=== PATIENT | female | born 1985 | race African-American/Black ===

== ENCOUNTER 2021-03-04 13:24 | Inpatient (IN) | payer MEDICAID ==
[~2021-03-04] VITALS: Ht 177.8 cm; Wt 81.0 kg
--- NOTE | 2021-03-04 15:57 | NUR ---
PT PLEASANT, AOX4, R ARM STRONGER THAN LEFT. LEGS WEAK AND REPORTS NUMBNESS BUT CAN FEEL WHEN PALPATING LEGS. REPORTS LEGS FEELING "HEAVY". ASSESSMENT PERFORMED, REPORTS JORY JAMIL TO SEE PT.
[2021-03-04 16:12] VITALS: BP 108/72; PULSE 95; TEMP 99.2
[2021-03-04] MEDS ORDERED: ONE-A-DAY ESSE1 EACH PO (16:30)
--- NOTE | 2021-03-04 17:55 | NUR ---
PT PLEASANT, AOX4, REPORTS LEG HEAVINESS AND NUMBNESS EXTENDING TO ABD. PT ORDERED DINNER, IV STARTED, B12 GIVEN, PT ALERT AND ORIENTED, DOES NOT GET UP WITHOUT ASSISTANCE.
--- NOTE | 2021-03-04 20:00 | NUR ---
Initial shift assessment done- denies pain, talking on the phone with family/friends. VSS. States lower extremities feel heavy, some numbness and tingling- states up to about rib level. Dr. Collins was just here to assess patient , ordered LP and MRI for tomorrow- patient aware. Will call for assist to bathroom.
[2021-03-04 20:26] VITALS: BP 102/71; PULSE 93; TEMP 98.4
[2021-03-05] VITALS (7 sets, daily range): BP systolic 103–117; BP diastolic 68–78; PULSE 76–98; TEMP 97.7–99.4
--- NOTE | 2021-03-05 06:00 | NUR ---
Did sleep some during the night-- VSS, understands having a LP and MRI today. Neuros unchanged- weak from waist/ribs down, with some tingling and numbness
[2021-03-05 06:30] LABS: HEMOGLOBIN 11.7 g/dl (12.5-16.0); MEAN CELL VOLUME 83 fl (80.0-100.0); MEAN CORPUSCULAR HEMOGLOBIN 26 pg (27.0-31.0); MEAN CORPUSCULAR HGB CONC 32 g/dl (33.0-37.0); MEAN PLATELET VOLUME 10.7 fl (7.4-10.4); PLATELET COUNT 235 K/mm3 (130-400); RED BLOOD COUNT 4.44 M/mm3 (4.10-5.30); REDCELL DISTRIBUTION WIDTH-CV 14.6 % (11.5-14.5)
[2021-03-05 06:40] LABS: HEMATOCRIT 36.9 % (37.0-47.0)
[2021-03-05 06:57] LABS: CALCIUM 9.4 mg/dL (8.4-10.2); CREATININE, serum 0.79 (0.52-1.25)
--- NOTE | 2021-03-05 08:05 | NUR ---
PT PLEASANT, AOX4, BLE NUMBNESS, STRENGTH INTACT, ASSESSMENT PERFOMRED, MEDICATIONS GIVEN, CONSENT OBTAINED FOR LP, NO OTHER NEEDS.
--- NOTE | 2021-03-05 10:09 | NUR ---
Central Office Worker attended clinical rounds with the team. PT/OT ordered. MRI ordered. Following rounds SW met with the patient to complete intake. The patient lives with her two daughters ages 9 and 12, and her mother, Jack Heath # . The patient denies DME use and is independent with ADLs. The patient's PCP is Aram Rowe PA-C at [facility] and uses [facility] in [place] for medications. The patient does not have advanced directives. The patient is legally from her but not . The patient's parents live locally. The patient plans to return home at discharge and the patient's father Mike Heath will provide transportation. *Discharge disposition at this time: Home with her mother and daughters
--- NOTE | 2021-03-05 10:51 | NUR ---
Initial visit; Patient thanked Gr[employer] 9 [employer] Tutor for looking in on her and offering encouragement and God's blessings.
[2021-03-05 15:58] LABS: HIV 1 and 2 ANTIBODY SCRN-SO Negative (Negative)
[2021-03-05 16:31] LABS: GLUCOSE,CSF 49 mg/dL (40-70); TOTAL PROTEIN,CSF 28 mg/dL (15-45)
[2021-03-05 16:45] LABS: CSF APPEARANCE CLEAR; CSF COLOR COLORLESS; CSF RBC 0 /mm3 (0-0)
[2021-03-05 17:01] LABS: CSF POLYMORPHONUCLEAR 0 % (0-6)
[2021-03-05 17:02] LABS: CSF MONONUCLEAR 15 % (70-100)
--- NOTE | 2021-03-05 18:00 | NUR ---
pt pleasant, aox4, weak le with numbness, solumedrol infusing, denies pain, all mri's/lp done today, no other needs.
--- NOTE | 2021-03-05 20:00 | NUR ---
Report received, assumed care for overnight associate. Assessment complete. VS stable. A&Ox3. Assisted up to bathroom-stand by assist-tolerated well. States she feels much more steady and has more feeling to lower extremities after receiving the steroids. States lower extremities are still "tingling" but not nearly as bad. Denies pain/nausea/shortness of breath. Voiding without difficulty. Tolerating PO. Denies questions/concerns. Call light in reach. Will monitor.
[2021-03-05 23:06] LABS: FOLATE (FOLIC ACID) >20.0 ng/mL (2.0-20.0)
[2021-03-06 01:31] LABS: LYME DISEASE ANTIBODIES 0.803 (Negative)
[2021-03-06 04:28] VITALS: BP 106/69; PULSE 66; TEMP 98
--- NOTE | 2021-03-06 05:35 | NUR ---
Pt states walking is much easier. States she feels much more steady and has more feeling to her lower extremity. Denies pain/nausea/shortness of breath. VS remained stable. Denies current needs. Call light in reach. Will monitor.
[2021-03-06 07:35] VITALS: BP 119/74; PULSE 73; TEMP 98.7
--- NOTE | 2021-03-06 07:47 | NUR ---
Patient lying awake in bed at this time. Patient C/O headache, Pilar to give tylenol before leaving. Patient denies any further discomfort or needs at this time. Will continue to monitor. Call light in reach. Fall precautions in place.
--- NOTE | 2021-03-06 09:39 | NUR ---
Scheduled meds given. Assessments performed. Patient C/O headache rated a 4/10. Tylenol given earlier in shift. Patient denies any further pain, discomfort, or needs at this time. Will continue to monitor. Call light within reach. Fall precautions in place.
[2021-03-06 11:57] VITALS: BP 105/66; PULSE 87; TEMP 97.7
[2021-03-06 17:19] VITALS: BP 96/59; PULSE 65; TEMP 98.6
--- NOTE | 2021-03-06 17:59 | NUR ---
Patient has had an good day. Worked with PT, walked in hallway. Patient C/O headache this am that was not relieved by PRN Tylenol. Benydryl and metoclorpramide given as ordered. Patient states that her headache is gone and that she was able to rest. Patient denies any further pain, discomfort, or needs at this time. Will continue to monitor. Call light within reach. Fall precautions in place.
--- NOTE | 2021-03-06 19:20 | NUR ---
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 Assessment complete. VS have been stable. Tolerating PO. Sitting up in bed visiting with father. Denies pain/nausea/shortness of breath. Able to move extremities better than last shift. States she ambulated in the hallways with PT today and tolerated it well-did state she felt tired after and slept well. Encouraged to call if headache returns. Verbalizes understanding/denies current needs. Call light in reach. Will monitor.
[2021-03-06 20:00] VITALS: BP 113/74; PULSE 78; TEMP 98.4
[2021-03-06 23:14] VITALS: BP 109/72; PULSE 70; TEMP 97.9
[2021-03-07 03:11] VITALS: BP 105/64; PULSE 55; TEMP 98.1
--- NOTE | 2021-03-07 04:25 | NUR ---
Slept well this shift. Denies headache/pain. States lower extremity numbness/tingling is much better. States ambulation is getting much better as well-stand by with walker. VS remained stable. Left forearm INT flushes without difficulty. Neuro checks WNL accept lower extremity control. Denies current needs. Call light in reach. Will monitor.
[2021-03-07 06:29] LABS: HEMOGLOBIN 11.5 g/dl (12.5-16.0); MEAN CELL VOLUME 81 fl (80.0-100.0); MEAN CORPUSCULAR HEMOGLOBIN 26 pg (27.0-31.0); MEAN CORPUSCULAR HGB CONC 32 g/dl (33.0-37.0); MEAN PLATELET VOLUME 10.6 fl (7.4-10.4); PLATELET COUNT 294 K/mm3 (130-400); RED BLOOD COUNT 4.39 M/mm3 (4.10-5.30); REDCELL DISTRIBUTION WIDTH-CV 14.6 % (11.5-14.5)
[2021-03-07 06:35] LABS: HEMATOCRIT 35.7 % (37.0-47.0)
[2021-03-07 06:37] LABS: CALCIUM 9.3 mg/dL (8.4-10.2); CREATININE, serum 0.83 (0.52-1.25); POTASSIUM 4.1 mmol/L (3.4-5.0)
--- NOTE | 2021-03-07 07:08 | NUR ---
Patient lying awake in bed watching videos on her phone. Patient states that she is feeling alot better today. Denies any pain, discomfort, or futher needs at this time. Will continue to monitor. Call light in reach. Fall precautions in place.
[2021-03-07 07:15] VITALS: BP 109/75; PULSE 71; TEMP 98
[2021-03-07 07:16] LABS: BAND 1 % (0-10); HYPOCHROMIA 1+; LYMPHOCYTE 5 % (20.0-51.0); NEUTROPHILS 94 % (42.0-75.2); PLATELET ESTIMATE NORMAL (NORMAL)
[2021-03-07 07:17] LABS: OVALOCYTES 1+; SCHISTOCYTES 1+
--- NOTE | 2021-03-07 08:13 | NUR ---
Scheduled meds given, assessments performed. Strength in left leg normal, right leg is still weak. Patient denies any pain, discomfort, or needs at this time. Will continue to monitor. Call light within reach. Fall precautions in place.
[2021-03-07 11:44] VITALS: BP 113/72; PULSE 58; TEMP 98.9
--- NOTE | 2021-03-07 12:29 | NUR ---
Patient resting in bed talking on the phone. Flexril given for neck pain, patient states that this has helped rid her of the pain. Patient denies any further discomfort or needs at this time. Will continue to monitor. Call light within reach. Fall precautions in place.
[2021-03-07 16:18] VITALS: BP 101/60; PULSE 72; TEMP 99
--- NOTE | 2021-03-07 17:47 | NUR ---
Patient had a good day. She did experience a headache earlier in the day, but it was relieved by flexeril and a warm towel. Patient has not experienced any further pain, discomfort, and denies any further needs. Solumedrol running as ordered. Call light within reach. Fall precautions in place. Will continue to monitor.
[2021-03-07 19:02] VITALS: BP 101/65; PULSE 69; TEMP 98.7
--- NOTE | 2021-03-07 20:30 | NUR ---
SL TO LEFT FOREARM FLUSHED, SOLUMEDROL COMPLETE. IS ALERT AND ORIENTED X4. INDEPENDENT IN ROOM. RT LEG WITH WEAKNESS, LEFT LEG FULL STRENGTH. DENIES NEEDS AT THIS TIME. DENIES HEADACHE.
[2021-03-07 23:43] VITALS: BP 107/71; PULSE 55; TEMP 98.5
--- NOTE | 2021-03-08 04:00 | NUR ---
PT HAS RESTED WELL. OFFERS NO COMPLAINTS.
[2021-03-08 04:08] VITALS: BP 115/68; PULSE 57; TEMP 98.4
--- NOTE | 2021-03-08 07:00 | NUR ---
REPORTS HEADACHE 4/10, FLEXERIL GIVEN.
--- NOTE | 2021-03-08 08:30 | NUR ---
PT PLEASANT, AOX4, REPORTED HEADACHE 4/10 AT SHIFT CHANGE FLEXERIL GIVEN AT BEDSIDE SHIFT REPORT, PT NOW REPORTS HEADACHE 2/10. PT DIDN'T EAT BREAKFAST BECAUSE "IT TASTED WEIRD". PT R LEG SIGNIFICANTLY WEAKER THAN RIGHT LEG, PT REPORTS BLE TINGLING AT THIS TIME, UPPER EXTREMITIES STRONG EQUALLY. MEDICATIONS GIVEN WITH EDUCATION ON PURPOSE, PT ASSESSMENT PERFORMED, VITALS REVIEWED, NO OTHER NEEDS AT THIS TIME.
[2021-03-08 08:37] VITALS: BP 117/71; PULSE 73; TEMP 97.6
[2021-03-08 11:39] VITALS: BP 110/68; PULSE 56; TEMP 98.7
--- NOTE | 2021-03-08 13:18 | NUR ---
Pt c/o neck pain 03/01. PRN tylenol and hot pack given. Pt is now resting in bed. Denies needs. Call light within reach.
--- NOTE | 2021-03-08 13:59 | NUR ---
Sales Driver met with the patient follow up regarding discharge plan. SW discussed PTs recommendation of the possiblity of needing IPR (post acute rehab). The patient would like to return home at discharge but was agreeable to sending referral to [facility]. Referral sent. *Discharge disposition: Plan is home but was agreeable to IPR referral for a back up. Awaiting screen.
[2021-03-08 14:48] LABS: HSV 2 DNA PCR QUAL Not Detected (())
[2021-03-08 17:00] VITALS: BP 112/70; PULSE 60; TEMP 98.5
--- NOTE | 2021-03-08 17:34 | NUR ---
PT PLEASANT, AOX4, UNEVENFTUL SHIFT, HEADACHE RELIEVED WITH TYLENOL AND HEAT PACK, NO OTHER NEEDS AT THIS TIME. SOLUMEDROL GIVEN.
[2021-03-08 19:52] VITALS: BP 112/73; PULSE 58; TEMP 98
--- NOTE | 2021-03-08 20:00 | NUR ---
Report received, assumed care for multi disciplined language analyst. Assessment complete. VS stable. A&Ox3. Denies pain/nausea/shortness of breath. Denies headache. Bilat lower extremitites stronger. Can lift and hold left lower extremity-right slightly less strong but can also lift and hold. Plan of care discussed for this shift-to include HS meds/pain meds/calling for questions/concerns. Call light in reach. Will monitor.
[2021-03-08 23:59] VITALS: BP 110/67; PULSE 52; TEMP 98.3
[2021-03-09 04:30] VITALS: BP 119/75; PULSE 49; TEMP 98.4
[2021-03-09 07:51] LABS: HEMOGLOBIN 11.4 g/dl (12.5-16.0); MEAN CELL VOLUME 84 fl (80.0-100.0); MEAN CORPUSCULAR HEMOGLOBIN 27 pg (27.0-31.0); MEAN CORPUSCULAR HGB CONC 32 g/dl (33.0-37.0); PLATELET COUNT 283 K/mm3 (130-400); REDCELL DISTRIBUTION WIDTH-CV 14.8 % (11.5-14.5)
[2021-03-09 07:58] LABS: HEMATOCRIT 35.9 % (37.0-47.0)
--- NOTE | 2021-03-09 08:00 | NUR ---
Shift assessment complete. Pt sitting up in bed talking on cell phone. Denies pain or other concerns this morning. Muscle strength and hand media senior recruiter equal bilaterally. A&Ox4. Heart RRR. Lungs CTA. Denies needs at this time. Call light in reach.
[2021-03-09 08:25] VITALS: BP 115/75; PULSE 51; TEMP 98
[2021-03-09 08:47] LABS: BAND 4 % (0-10); LYMPHOCYTE 6 % (20.0-51.0); NEUTROPHILS 89 % (42.0-75.2); PLATELET ESTIMATE NORMAL (NORMAL)
[2021-03-09] MEDS ORDERED: DOXYCYCLINE 10100 MG PO (09:37)
[2021-03-09] MEDS ORDERED: B-121000 MCG PO (09:38)
[2021-03-09] MEDS ORDERED: PEPCID 20MG TAB20 MG PO (09:39)
[2021-03-09] MEDS ORDERED: FLEXERIL 1010 MG/TAB PO (09:39)
[2021-03-09] MEDS ORDERED: PREDNISONE10 MG PO (09:41)
--- NOTE | 2021-03-09 11:05 | NUR ---
Senior Sql Dba attended clinical rounds with the team. The patient to tentatively discharge home today, 03/09 with her daughters and mother. The patient is now amulating without assistive devices and is ready to discharge. There are no additional needs at this time.
[2021-03-09 12:09] VITALS: BP 111/70; PULSE 66; TEMP 98.7
[2021-03-09] MEDS ORDERED: VITAMIN D31000 IU PO (13:16)
--- NOTE | 2021-03-09 16:25 | NUR ---
Pt off unit for blood patch at this time.
[2021-03-09 17:29] VITALS: BP 117/64; PULSE 60; TEMP 98.6
[2021-03-09 18:11] LABS: CADMIUM BLOOD 0.3 ng/mL (<5.0); LEAD,SERUM** <1.0 mcg/dL (<5.0); MERCURY,SERUM <1 ng/mL (<10)
--- NOTE | 2021-03-09 18:24 | NUR ---
Discharge instructions discussed w/pt and all questions answered. IV to left forearm removed w/tip intact. Pt escorted out w/all belongings via wheelchair.
[2021-03-11 13:33] LABS: CSF OLIG BD INTERPRETATION 5; SE OLIGOCLONAL BANDING 0
== END 2021-03-09 18:25 | disposition home or self-care (01) | DRG 59 ==
LOC: MEDICAL 13:24
PROVIDERS: Physician Assistant; Psychiatry & Neurology Neurology; ADMIT Hospitalist
PROC: 009U3ZX Drainage of Spinal Canal, Percutaneous Approach, Diagnostic (ICD-10-PCS; principal; 2021-03-09 16:40)
DX: G35 Multiple sclerosis (principal); A69.20 Lyme disease, unspecified; E53.8 Deficiency of other specified B group vitamins; D72.829 Elevated white blood cell count, unspecified; G44.89 Other headache syndrome; G97.1 Other reaction to spinal and lumbar puncture
CPT/HCPCS: 99231-AI; 99232-AI; A9585; G0378; J0696; J1200; J1650; J2765; J2930; J7050